=== PATIENT | female | born 1995 | race Caucasian/White ===

== ENCOUNTER 2020-06-26 14:06 | Day surgery (SDC) | payer OTHER ==
[2020-06-26 14:44] LABS: BASOPHILS % (AUTO) 0.6 %; EOSINOPHILS # (AUTO) 0.1 10^3/uL (0.0-0.7); EOSINOPHILS % (AUTO) 1.2 %; HGB - HEMOGLOBIN 12.8 g/dL (12.0-16.0); LYMPHOCYTES % (AUTO) 38.4 %; MEAN CORPUSCULAR HEMOGLOBIN 30.4 pg (27.0-31.0); MEAN CORPUSCULAR HGB CONC 31.8 g/dL (32.0-36.0); MEAN CORPUSCULAR VOLUME 95.7 fL (81.0-99.0); MEAN PLATELET VOLUME 11.4 fL (7.9-10.8); MONOCYTES # (AUTO) 0.4 10^3/uL (0.0-1.0); MONOCYTES % (AUTO) 7.8 %; NEUTROPHILS # (AUTO) 2.7 10^3/uL (1.5-6.6); NEUTROPHILS % (AUTO) 51.8 %; PLT - PLATELET COUNT 216 10^3/uL (130-450); RED BLOOD COUNT 4.21 10^6/uL (4.20-5.40); RED CELL DISTRIBUTION WIDTH 12.9 % (12.0-15.0); WHITE BLOOD COUNT 5.2 x10^3/uL (4.8-10.8)
[2020-06-26 14:59] LABS: ALBUMIN 4.2 g/dL (3.2-5.5); ALBUMIN/GLOBULIN RATIO 1.2 (1.0-2.2); BILIRUBIN,TOTAL 0.6 mg/dL (0.2-1.0); CALCIUM 9.2 mg/dL (8.5-10.3); CREATININE 0.6 mg/dL (0.4-1.0); TOTAL PROTEIN 7.6 g/dL (6.7-8.2)
[2020-06-26] MEDS ORDERED: SODIUM CHLORIDE 0.9% 1,000 ML IV STA (14:59)
--- NOTE | 2020-06-26 15:02 | ED Physician Documentation ---
History of Present Illness - Stated complaint Stated Complaint: FEMALE - Chief complaint Chief Complaint: Abd Pain - History obtained from History obtained from: Patient, Family - Additonal information Additional information: 25-year-old female comes to the emergency department with 2 days right lower quadrant pelvic pain. She is . Last menstrual period May 18, 2020. She began having persistent right lower quadrant pelvic pain 2 days ago and was seen at [facility] emergency department. She reports to me that she did have imaging done but they could not rule out ectopic and she was advised to follow- up in 2 days to trend her hCG levels. Since being seen at [facility] ER she reports that the pain is worsening. She does endorse vaginal spotting but no heavy menstrual flow. She has no fevers, dysuria, Patient denies any pertinent past medical history. Takes no prescribed medications. Denies tobacco or alcohol use. This is a desired . Review of Systems Constitutional: denies: Fever, Chills Nose: denies: Rhinorrhea / runny nose, Congestion Cardiac: denies: Chest pain / pressure, Palpitations Respiratory: denies: Dyspnea, Cough GI: reports: Abdominal Pain, Nausea. denies: Vomiting, Constipation, Diarrhea, Hematemesis : reports: LMP (05/18/20), Vaginal bleeding, Now EGA. denies: Dysuria, Frequency, Hesitancy Skin: denies: Rash, Lesions Neurologic: denies: Focal weakness, Numbness, Difficulty speaking, Near syncope, Syncope, Seizure, Headache, LOC PD PAST MEDICAL HISTORY - Allergies Allergies/Adverse Reactions: Allergies Allergy/AdvReac Type Severity Reaction Status Date / Time acetaminophen Allergy Unknown Verified 06/26/20 14:18 peanut Allergy Unknown Verified 06/26/20 14:18 PD ED PE NORMAL - General General: Alert and oriented X 3, No acute distress, Well developed/nourished - Neck Neck: No adenopathy - Cardiac Cardiac: RRR, No murmur, No gallop - Respiratory Respiratory: No respiratory distress, Clear bilaterally - Abdomen Abdomen: Normal bowel sounds, Soft, Other (Rebound tenderness RLQ) - Female Female : No: Deferred - Back Back: No: No CVA TTP - Derm Derm: No: Normal color, Warm and dry - Extremities Extremities: No: No deformity, No tenderness to palpate - Neuro Neuro: No: Alert and oriented X 3, rehabilitation worker 2-12 intact, No motor deficit, No sensory deficit Results - Vitals Vitals: Vital Signs - 24 hr 06/26/20 06/26/20 06/26/20 14:11 15:23 16:52 Temperature 37.1 C Heart Rate 74 74 72 Respiratory 20 16 16 Rate Blood Pressure 101/63 111/59 L 107/66 O2 Saturation 97 100 100 Oxygen O2 Source Room air - Labs Labs: Laboratory Tests 06/26/20 06/26/20 06/26/20 14:40 14:40 14:40 WBC 5.2 RBC 4.21 Hgb 12.8 Hct 40.3 MCV 95.7 MCH 30.4 MCHC 31.8 L RDW 12.9 Plt Count 216 MPV 11.4 H Neut # (Auto) 2.7 Lymph # (Auto) 2.0 [place] # (Auto) 0.4 Eos # (Auto) 0.1 Baso # (Auto) 0.0 Absolute Nucleated RBC 0.00 Nucleated RBC % 0.0 Sodium 138 Potassium 3.9 Chloride 102 Carbon Dioxide 25 Anion Gap 11.0 BUN 9 Creatinine 0.6 Estimated GFR (MDRD) 122 Glucose 92 Calcium 9.2 Total Bilirubin 0.6 AST 18 ALT 16 Alkaline Phosphatase 46 Total Protein 7.6 Albumin 4.2 Globulin 3.4 Albumin/Globulin Ratio 1.2 Lipase 38 HCG, Quant 1775.00 Urine Color Urine Clarity Urine pH Ur Specific [place] Urine Protein Urine Glucose (UA) Urine Ketones Urine Occult Blood Urine Nitrite Urine Bilirubin Urine Urobilinogen Ur Leukocyte Esterase Urine RBC Urine WBC Ur Squamous Epith Cells Urine Bacteria Ur Microscopic Review Urine Culture Comments 06/26/20 15:10 WBC RBC Hgb Hct MCV MCH MCHC RDW Plt Count MPV Neut # (Auto) Lymph # (Auto) [place] # (Auto) Eos # (Auto) Baso # (Auto) Absolute Nucleated RBC Nucleated RBC % Sodium Potassium Chloride Carbon Dioxide Anion Gap BUN Creatinine Estimated GFR (MDRD) Glucose Calcium Total Bilirubin AST ALT Alkaline Phosphatase Total Protein Albumin Globulin Albumin/Globulin Ratio Lipase HCG, Quant Urine Color YELLOW Urine Clarity CLEAR Urine pH 7.5 Ur Specific [place] 1.015 Urine Protein NEGATIVE Urine Glucose (UA) NEGATIVE Urine Ketones NEGATIVE Urine Occult Blood SMALL H Urine Nitrite NEGATIVE Urine Bilirubin NEGATIVE Urine Urobilinogen 0.2 (NORMAL) Ur Leukocyte Esterase NEGATIVE Urine RBC 0-5 Urine WBC 4-5 Ur Squamous Epith Cells RARE Squamous Urine Bacteria None Seen Ur Microscopic Review INDICATED Urine Culture Comments NOT INDICATED - Rads (name of study) Pelvic Ultrasound Radiology: Final report received (Findings highly suspicious for a right tubal/ovarian ectopic) PD MEDICAL DECISION MAKING - ED course ED course: 25-year-old female presents to the emergency department for evaluation of right lower abdominal/pelvic pain. She is and was seen at [facility] emergency department 2 days ago for similar. She reports to me that at the time they could not rule out an ectopic . She is not clear what her hCG value was at the time of the ED visit. Since then she is continued to have persistent pain and presents today for further evaluation. We have requested the emergency department records labs and imaging from [facility]. 1628: I have been notified by the chemical engineering technologist that the ultrasound is very concerning for a possible right tubal ectopic . I have asked for Dr. Soto to be paged for further consult and evaluation 1655: Dr. Soto is at bedside. He has indicated to this provider that he will be taking the patient to surgery to manage her ectopic . Departure - Departure Disposition: ED Transfer to [facility] Clinical Impression: Ectopic , tubal Qualifiers: Intrauterine status: unspecified Laterality: right Qualified Code(s): O00.101 - Right tubal without intrauterine
[2020-06-26] MEDS ORDERED: MORPHINE 2 MG/ML CARPUJECT IVP STA (15:15)
[2020-06-26 15:34] LABS: BILIRUBIN,URINE NEGATIVE (NEGATIVE); GLUCOSE, URINE (UA) NEGATIVE (NEGATIVE); KETONES,URINE (UA) NEGATIVE (NEGATIVE); LEUKOCYTE ESTERASE, URINE NEGATIVE (NEGATIVE); NITRITE,URINE NEGATIVE (NEGATIVE); OCCULT BLOOD,URINE SMALL (NEGATIVE); PH,URINE 7.5 PH (5.0-7.5); PROTEIN,URINE NEGATIVE (NEGATIVE); UROBILINOGEN,URINE 0.2 (NORMAL) E.U./dL (NORMAL)
[2020-06-26 15:46] LABS: BACTERIA,URINE None Seen /HPF (None Seen); CLARITY,URINE CLEAR (CLEAR); RBC,URINE 0-5 /HPF (0-5); SQUAMOUS EPITHELIAL CELL,UR RARE Squamous (<= Few)
--- NOTE | 2020-06-26 16:33 | Ultrasound Report ---
PROCEDURE: OB First Trimester INDICATIONS: Right lower quadrant abdominal pain, suspicion for ectopic TECHNIQUE: Real-time scanning was performed of the fetus and maternal pelvic organs, with image documentation. COMPARISON: 06/24/2020 FINDINGS: These images demonstrate a constellation of findings highly suspicious for right ovarian ectopic preg jonathon or tubal ectopic . Specifically, at the medial aspect of the right ovary near the junc tion of the ovary and fallopian tube, there is an approximately 3.2 cm focus of increased echogenicit y with peripheral circular vascularity (so-called ring of fire sign). There is extensive free fluid i n the right hemipelvis adjacent to the right ovary and right uterus which has multiple low-level inte rnal echoes suggestive of hemorrhagic or proteinaceous debris in the fluid. There is no evidence of intrauterine . The left ovary is unremarkable. IMPRESSION: Findings highly suspicious for right ovarian/tubal ectopic. Gynecology consult recommended. Reviewed by: Russell Redman MD on 06/26/2020 4:32 PM PDT Approved by: Russell Redman MD on 06/26/2020 4:32 PM PDT Station ID: [id number]
[2020-06-26] MEDS ORDERED: BUPIVACAINE 0.25% PF 30 ML VIAL ONE (17:19)
--- NOTE | 2020-06-26 17:44 | PREOP HISTORY & PHYSICAL ---
DATE OF SERVICE: 06/26/2020 Physician: Mo Soto MD IDENTIFICATION: The patient is a 25-year-old G1, P0 female whose last menstrual period was 05/18/2020. This makes her 5.4 weeks. CHIEF COMPLAINT: Right lower quadrant pain. HISTORY OF PRESENT ILLNESS: The patient states that she has developed some right lower abdominal discomfort and cramping. She states that it became progressively worse and was seen at the hospital in [place] on 06/24/2020, at which time she had an ultrasound and hCG, was told it was probably too early at that point. She was told to get a repeat quantitative hCG. Today, she states her pain has become progressively worse and is now severe on the right lower quadrant. She was seen initially here at 1400. She has had an ultrasound, as well as quantitative hCG. The quantitative hCG of 1770. The ultrasound was compatible with a right ectopic , with evidence of blood in the abdominal cavity. The patient was questioning whether it would be too late to utilize methotrexate, but since she is having significant pain, as well as what appears to be bleeding I do not believe this is the case. She denies use of an IUD in the past, but has had a chlamydial infection. She denies a history of an appendicitis. PAST MEDICAL HISTORY: Positive for migraine. PAST SURGICAL HISTORY: None. ALLERGIES: ACETAMINOPHEN. CURRENT MEDICATIONS: None. HABITS: The patient drinks alcohol, maybe on a monthly basis. Denies used tobacco, street or addictive drugs. 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 FAMILY HISTORY: Positive for grandmother with hypertension. REVIEW OF SYSTEMS: Negative with the exception of glasses and possible irritable bowel syndrome. PHYSICAL EXAMINATION VITAL SIGNS: Temperature 37.1, heart rate 72, blood pressure 107/66, saturating 100% on room air. HEENT: Pupils equal, round. Extraocular muscles are intact. Thyroid is not palpably enlarged. HEART: Regular rate and rhythm without murmurs. LUNGS: Lung gautam are clear without rales or wheezes. BACK: No spinal or CVA tenderness noted. ABDOMEN: Shows tenderness in the right lower quadrant with evidence of rebound. The remainder of the abdomen is tender with the exception of some mild tenderness in the left lower quadrant. There is no CVA tenderness noted. PELVIC: Deferred in that she has signs and symptoms which are strongly compatible for an ectopic . IMPRESSION: A 25-year-old G1, P0, with right-sided ectopic with apparent hemoperitoneum. PLAN: We will perform diagnostic laparoscopy with excision of the right fallopian tube. Risks and benefits have been explained to the patient, including those, but not limited to bleeding, infection, injury to pelvic organs, which include the uterus, tubes, ovaries, bowel, bladder and ureters. She is aware of the potential for DVT, as well as postoperative adhesions which could cause pain, bowel obstruction, infertility. TD: 06/26/2020 17:25 ROXANA
[2020-06-26] MEDS ORDERED: BUPIVACAINE 0.25%-EPI 1:200000 PF 30 ML VIAL ONE (17:51)
--- NOTE | 2020-06-26 17:51 | ANESTHESIA ---
Pre-Anesthesia VS, & Labs - Diagnosis right ectopic - Procedure diagnostic laparscopy, right salpingectomy, left chromopertubation Vital Signs: Temp Pulse Resp BP Pulse Ox 37.3 C 91 16 127/76 100 06/26/20 17:41 06/26/20 17:41 06/26/20 17:41 06/26/20 17:41 06/26/20 17:41 Height 5 ft 9 in Weight (kg) 72.575 kg Body Mass Index 23.6 - NPO Other (NPO since noon) - Is Patient ?: Yes - Lab Results Current Lab Results: Laboratory Tests 06/26/20 16:35: Blood Type AB POSITIVE 06/26/20 14:40: HCG, Quant 1775.00 06/26/20 14:40: Sodium 138, Potassium 3.9, Chloride 102, Carbon Dioxide 25, Anion Gap 11.0, BUN 9, Creatinine 0.6, Estimated GFR (MDRD) 122, Glucose 92, Calcium 9.2, Total Bilirubin 0.6, AST 18, ALT 16, Alkaline Phosphatase 46, Total Protein 7.6, Albumin 4.2, Globulin 3.4, Albumin/Globulin Ratio 1.2, Lipase 38 06/26/20 14:40: WBC 5.2, RBC 4.21, Hgb 12.8, Hct 40.3, MCV 95.7, MCH 30.4, MCHC 31.8 L, RDW 12.9, Plt Count 216, MPV 11.4 H, Neut # (Auto) 2.7, Lymph # (Auto) 2.0, [place] # (Auto) 0.4, Eos # (Auto) 0.1, Baso # (Auto) 0.0, Absolute Nucleated RBC 0.00, Nucleated RBC % 0.0 Fish Bones: 06/26/20 14:40 06/26/20 14:40 Home Medications and Allergies Allergies/Adverse Reactions: Allergies Allergy/AdvReac Type Severity Reaction Status Date / Time acetaminophen Allergy Unknown Verified 06/26/20 14:18 peanut Allergy Unknown Verified 06/26/20 14:18 Anes History & Medical History - Anesthetic History Family history of Anesthesia Complications: Denies Family history of Malignant Hyperthermia: Denies - Medical History Cardiovascular: reports: None Pulmonary: reports: None Gastrointestinal: reports: None Urinary: reports: None Neuro: reports: None Musculoskeletal: reports: None Endocrine/Autoimmune: reports: None Blood Disorders: reports: None Skin: reports: None Smoking Status: Never smoker Psychosocial: reports: No issues indicated Exam General: Alert, Oriented x3, Cooperative, No acute distress Dental: WNL Mouth Openin Fingerbreadth Neck Mobility: Normal Mallampati classification: II Thyromental Distance: 4-6 cm Respiratory: Lungs clear, Normal breath sounds, No respiratory distress, No accessory muscle use Cardiovascular: Regular rate, Normal S1, Normal S2, No murmurs Mental/Cognitive Status: Alert/Oriented X3, Normal for patient Plan Anesthesia Type: General (RSI) Consent for Procedure(s) Verified and Reviewed: Yes Code Status: Attempt Resuscitation ASA classification: 1-Healthy patient Is this case an emergency?: Yes
[2020-06-26] MEDS ORDERED: METHYLENE BLUE 0.5% 50 MG/10 ML AMPULE ONE (17:57)
[2020-06-26] MEDS ORDERED: ONDANSETRON 4 MG/2 ML VIAL IVP ONE (18:06)
[2020-06-26] MEDS ORDERED: SUCCINYLCHOLINE 200 MG/10 ML VIAL IVP ONE (18:06)
[2020-06-26] MEDS ORDERED: PROPOFOL 200 MG/20 ML VIAL IVP ONE (18:06)
[2020-06-26] MEDS ORDERED: MIDAZOLAM 2 MG/2 ML VIAL IVP ONE (18:06)
[2020-06-26] MEDS ORDERED: ROCURONIUM 50 MG/5 ML VIAL IVP ONE (18:06)
[2020-06-26] MEDS ORDERED: KETOROLAC 30 MG/ML VIAL IVP ONE (18:06)
[2020-06-26] MEDS ORDERED: DEXAMETHASONE 4 MG/ML VIAL IVP ONE (18:06)
[2020-06-26] MEDS ORDERED: GLYCOPYRROLATE 1 MG/5 ML VIAL IVP ONE (18:06)
[2020-06-26] MEDS ORDERED: fentaNYL 100 MCG/2 ML VIAL IVP ONE (18:06)
[2020-06-26] MEDS ORDERED: NEOSTIGMINE 1 MG/1 ML 10 ML MDV IVP ONE (18:06)
[2020-06-26] MEDS ORDERED: CEFAZOLIN SODIUM IN 0.9 % NACL 2 GM/100 ML BAG IV ONE (18:30)
[2020-06-26] MEDS ORDERED: BUPIVACAINE 0.25%-EPI 1:200000 PF 30 ML VIAL SUBQ ONE ×2 (18:42)
[2020-06-26] MEDS ORDERED: METHYLENE BLUE 0.5% 50 MG/10 ML AMPULE IR ONE ×2 (18:42)
[2020-06-26] MEDS ORDERED: LORazepam 2 MG/ML VIAL IVP PRN (19:44)
[2020-06-26] MEDS ORDERED: ONDANSETRON 4 MG/2 ML VIAL IVP PRN ×2 (19:44→19:46)
[2020-06-26] MEDS ORDERED: LACTATED RINGERS 1,000 ML IV ONE (19:45)
[2020-06-26] MEDS ORDERED: MORPHINE 2 MG/ML CARPUJECT IVP PRN (19:46)
[2020-06-26] MEDS ORDERED: HYDROmorphone 0.5 MG/0.5 ML SYRINGE IVP PRN (19:46)
[2020-06-26] MEDS ORDERED: fentaNYL 100 MCG/2 ML VIAL IVP PRN (19:46)
[2020-06-26] MEDS ORDERED: ATROPINE ABBOJECT 1 MG/10 ML SYRINGE IVP PRN (19:46)
[2020-06-26] MEDS ORDERED: NALOXONE 0.4 MG/ML VIAL IVP PRN (19:46)
--- NOTE | 2020-06-26 19:49 | OPERATIVE REPORT ---
Operative Report - General Procedure Date: 06/26/20 Planned Procedure: Laproscopic right salpingectomy, chromopertubation Pre-Op Diagnosis: rigth ectopic Procedure Performed: Rigth laproscopic salpingectomy, Chromopertubation Post Op Diagnosis: Same - Procedure Note Primary Surgeon: Mo Soto MD Anesthesia Provider: Kentrell Dey CRNA Anesthesia Technique: General ET tube IV Fluids (mL): 1,000 Estimated Blood Loss (mL): 5 Urine Output (mL): 50
[2020-06-26] MEDS: HYDROmorphone 1 MG/ML CARPUJECT ONE ×2 (19:53→19:58)
[2020-06-26] MEDS ORDERED: LACTATED RINGERS 1,000 ML IV SCH (20:00)
[2020-06-26] MEDS ORDERED: fentaNYL 100 MCG/2 ML VIAL ONE (20:10)
--- NOTE | 2020-06-26 20:10 | ANESTHESIA POST OP EVALUATION ---
Anesthesia Post Eval - Post Anesthesia Eval Vitals: Last Vital Signs Temp 36.3 C L 06/26/20 19:58 Pulse 90 06/26/20 19:58 Resp 24 06/26/20 19:58 BP 106/71 06/26/20 19:58 Pulse Ox 100 06/26/20 19:58 CV Function Including HR & BP: positive: Stable Pain Control: positive: Additional Therapies Ordered Nausea & Vomiting: positive: Negative Mental Status: positive: Baseline Respiratory Status: Airway Patent Hydration Status: Satisfactory Anesthesia Complications: positive: None
[2020-06-26] MEDS: LACTATED RINGERS 1,000 ML IV SCH (22:13)
[2020-06-27] MEDS ORDERED: SODIUM CHLORIDE 0.9% 500 ML IV ONE (02:31)
--- NOTE | 2020-06-27 03:11 | OPERATIVE REPORT ---
DATE OF SERVICE: 06/26/2020 Physician: Mo Soto MD PREOPERATIVE DIAGNOSIS: Right ectopic . POSTOPERATIVE DIAGNOSES 1. Right ectopic with hemoperitoneum. 2. Patent left fallopian tube. PROCEDURE PERFORMED: Diagnostic laparoscopy with right salpingectomy and chromopertubation. SURGEON: Mo Soto MD ANESTHESIA PROVIDER: Jo Humphrey CRNA ANESTHETIC: General via endotracheal tube. ESTIMATED BLOOD LOSS: 5 mL INTRAVENOUS FLUIDS: 1000 mL URINE OUTPUT: 50 mL FINDINGS: Upon entering the abdominal cavity, there was blood noted throughout the entire pelvis. T here was pooling in the cul-de-sac, as well as over the bladder. There was an ectopic in t he fimbriated area of the right fallopian tube with blood dripping from the fimbria. Upon performing of chromopertubation, there was evidence of a patent left fallopian tube with methylene blue dye com ing out the fimbriated end. DESCRIPTION OF PROCEDURE: Following adequate endotracheal anesthesia, patient was placed in dorsal l ithotomy position in Jose stirru. At this point, a pelvic examination was performed in which the uterus was felt to be retroverted. She was then prepped and draped in the usual fashion. Timeout wa s performed, following which, a speculum was placed in the vagina. The cervix was visualized, graspe d with a single-tooth tenaculum and then it was dilated up to 8 mm. Uterus was sounded, retroverted, 8 mm in depth. A HUMI catheter was placed in the retroverted orientation. Following this, an IV ex tension was placed. At this point, the carbon furnace operator's gloves were changed and, following local anesthesi a with 0.25% Marcaine, a subumbilical port was placed. There was some difficulty with depth so that a 15 cm trocar was placed on the first pass. Two additional 5 mm ports were placed, both in the left and right lower quadrants. The pelvis was inspected and there was evidence of hemoperitoneum, both in the cul-de-sac surrounding the right adnexa, as well as the anterior bladder. These were suctione d clear utilizing the radio machinist aspirator. A LigaSure was then used to cauterize and transect the me sosalpinx on the right fallopian tube. This was carried all the way to the cornu and then this was t ransected. This was attempted to be brought through the right lower quadrant 5 mm port; however, thi s was unsuccessful due to its diameter, so a 10 mm trocar was placed under direct visualization. The was then brought through this port without difficulty. At this point, the mesosalpinx on the right-hand side was inspected and noted to have a small amount of bleeding. This was treated wit h electrocautery. The pelvis was inspected and the left fallopian tube had methylene blue dilute shoaib ution put through the tube on this side. There was evidence of patency. The pelvis was then irrigat ed clear and there was no evidence of any further bleeding. The right lower quadrant port was remove d and then this was closed with a single suture of 0 Vicryl with a Agus-Brad. The midline and left lower quadrant ports were removed, and then all 3 were closed with 4-0 Monocryl subcuticular. A t this point, the instruments were removed from the vagina and cervix. Patient tolerated the procedu re well and was taken to Recovery in stable condition. Sponge and needle counts were correct. TD: 06/26/2020 19:59
[2020-06-27] MEDS ORDERED: SODIUM CHLORIDE 0.9% 250 ML IV ONE (05:04)
[2020-06-27] MEDS: KETOROLAC 30 MG/ML VIAL IVP PRN ×2 (05:24→11:18)
[2020-06-27 05:49] LABS: HGB - HEMOGLOBIN 10.5 g/dL (12.0-16.0); LYMPHOCYTES # (AUTO) 0.7 10^3/uL (1.5-3.5); LYMPHOCYTES % (AUTO) 10.8 %; MEAN CORPUSCULAR HEMOGLOBIN 30.5 pg (27.0-31.0); MEAN CORPUSCULAR HGB CONC 33.3 g/dL (32.0-36.0); MEAN CORPUSCULAR VOLUME 91.6 fL (81.0-99.0); MEAN PLATELET VOLUME 11.4 fL (7.9-10.8); MONOCYTES # (AUTO) 0.2 10^3/uL (0.0-1.0); MONOCYTES % (AUTO) 3.7 %; NEUTROPHILS # (AUTO) 5.4 10^3/uL (1.5-6.6); NEUTROPHILS % (AUTO) 85.2 %; PLT - PLATELET COUNT 193 10^3/uL (130-450); RED BLOOD COUNT 3.44 10^6/uL (4.20-5.40); RED CELL DISTRIBUTION WIDTH 12.9 % (12.0-15.0); WHITE BLOOD COUNT 6.3 x10^3/uL (4.8-10.8)
[2020-06-27] MEDS: LACTATED RINGERS 1,000 ML IV SCH (08:51)
[2020-06-27] MEDS: HYDROmorphone 0.5 MG/0.5 ML SYRINGE IVP PRN ×2 (10:05→13:55)
[2020-06-27 13:08] VITALS: BP 90/51
== END 2020-06-27 14:44 | disposition home or self-care (01) ==
LOC: ED 14:06 → SDS 17:14 → MS2 20:35 → SDS 06-27 14:44
PROVIDERS: ATTEND Obstetrics & Gynecology
PROC: 0UT54ZZ Resection of Right Fallopian Tube, Percutaneous Endoscopic Approach (ICD-10-PCS; 2020-06-26)
PROC: 10T24ZZ Resection of Products of Conception, Ectopic, Percutaneous Endoscopic Approach (ICD-10-PCS; principal; 2020-06-26 17:20)
DX: O00.101 Right tubal pregnancy without intrauterine pregnancy (principal); Z86.19 Personal history of other infectious and parasitic diseases
CPT/HCPCS: 36415; 59151; 76801; 76817; 80053; 81001; 83690; 84702; 85025; 86900; 86901; 96361; 96374; 99284; 99285; J0330; J0690; J1170; J2060; J7120; 81003; 87086

== ENCOUNTER 2020-07-03 14:27 | Outpatient (CLI) | payer OTHER | END 2020-07-03 14:28 | disposition critical access hospital (66) | LOC: EMS 14:27 | PROVIDERS: ATTEND Surgery | DX: R55 Syncope and collapse (principal); R10.31 Right lower quadrant pain | CPT/HCPCS: A0425; A0427 ==

== ENCOUNTER 2020-07-03 14:44 | Emergency (ER) | payer OTHER ==
[2020-07-03] MEDS ORDERED: SODIUM CHLORIDE 0.9% 1,000 ML IV STA ×2 (15:32→16:25)
--- NOTE | 2020-07-03 15:54 | ED Physician Documentation ---
PD HPI SYNCOPE - Stated complaint Stated Complaint: LOC - Chief complaint Chief Complaint: Neuro - History obtained from History obtained from: Patient, Family - History of Present Illness Witnessed: Witnessed Timing - onset: Today Duration: Minutes Preceding symptoms: Vision changes, Diaphoresis, Light headed, Generalized weak ness Associated symptoms: Vision changes, Nausea / vomiting Contributing factors: Decreased PO intake, Other Injury occurred: None Treatment RESAWYER: Fluids Similar symptoms before: Has not had sx before Recently seen: Surgery - Additional information Additional information: 25-year-old female has had a recent surgery for ectopic was in the shower today with her when she had 3 syncopal episodes. She was assisted down to the ground she did not have any injury associated with this and she is brought to the hospital by ambulance. Review of Systems Constitutional: reports: Fatigue. denies: Fever Eyes: denies: Decreased vision Ears: denies: Ear pain Nose: denies: Congestion Throat: denies: Sore throat Cardiac: denies: Chest pain / pressure, Palpitations Respiratory: denies: Dyspnea, Cough GI: reports: Abdominal Pain : denies: Dysuria, Frequency Skin: denies: Rash Musculoskeletal: denies: Neck pain, Back pain, Extremity pain Neurologic: reports: Syncope, Headache. 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 : None Musculoskeletal: None Derm: None - Past Surgical History Past Surgical History: No /COMMERCIAL FRONT LOAD DRIVER: Other - Allergies Allergies/Adverse Reactions: Allergies Allergy/AdvReac Type Severity Reaction Status Date / Time acetaminophen Allergy Unknown Verified 06/26/20 14:18 peanut Allergy Unknown Verified 06/26/20 14:18 - Social History Does the pt smoke?: No Smoking Status: Never smoker Does the pt have substance abuse?: No PD ED PE NORMAL - Vitals Vital signs reviewed: Yes (normal ) - General General: Alert and oriented X 3, No acute distress, Well developed/nourished - HEENT HEENT: Atraumatic, PERRL, EOMI - Neck Neck: Supple, no meningeal sign - Cardiac Cardiac: RRR, No murmur - Respiratory Respiratory: No respiratory distress, Clear bilaterally - Abdomen Abdomen: Soft, Other (R lower quadrant tenderness without garding. ) - Back Back: No CVA TTP, No spinal TTP - Derm Derm: Normal color, Warm and dry, No rash - Extremities Extremities: No deformity, No edema - Neuro Neuro: Alert and oriented X 3, account receivable associate 2-12 intact, No motor deficit, No sensory deficit, Normal speech Eye Opening: Spontaneous Motor: Obeys Commands Verbal: Oriented GCS Score: 15 - Psych Psych: Normal mood, Normal affect Results - Vitals Vitals: Vital Signs - 24 hr 07/03/20 07/03/20 07/03/20 14:52 15:29 15:30 Temperature 37.0 C Heart Rate 93 54 L 60 Respiratory 18 14 16 Rate Blood Pressure 115/74 108/67 117/73 O2 Saturation 100 100 99 07/03/20 07/03/20 07/03/20 16:00 16:30 17:00 Temperature 37.3 C Heart Rate 57 L 62 71 Respiratory 14 16 14 Rate Blood Pressure 104/57 L 98/62 105/61 O2 Saturation 99 100 100 07/03/20 17:30 Temperature Heart Rate 74 Respiratory 16 Rate Blood Pressure 104/64 O2 Saturation 100 Oxygen O2 Source Room air - EKG (time done) 1451 Rate: Rate (enter#) (71) Rhythm: NSR Ischemia: Normal ST segments Compare to prior EKG: Old EKG unavailable Computer interpretation: Agree with computer - Labs Labs: Laboratory Tests 07/03/20 07/03/20 07/03/20 15:41 15:41 16:15 WBC 6.4 RBC 3.86 L Hgb 12.2 Hct 34.8 L MCV 90.2 MCH 31.6 H MCHC 35.1 RDW 12.6 Plt Count 246 MPV 10.7 Neut # (Auto) 4.8 Lymph # (Auto) 1.1 L [place] # (Auto) 0.5 Eos # (Auto) 0.1 Baso # (Auto) 0.0 Absolute Nucleated RBC 0.00 Nucleated RBC % 0.0 Sodium 138 Potassium 3.8 Chloride 105 Carbon Dioxide 25 Anion Gap 8.0 BUN 11 Creatinine 0.7 Estimated GFR (MDRD) 102 Glucose 95 Calcium 8.9 Total Bilirubin 0.7 AST 16 ALT 15 Alkaline Phosphatase 41 L Total Protein 7.1 Albumin 3.8 Globulin 3.3 Albumin/Globulin Ratio 1.2 Lipase 37 Urine Color RED/BLOODY Urine Clarity CLOUDY Urine pH 8.0 H Ur Specific [place] 1.020 Urine Protein 30 H Urine Glucose (UA) NEGATIVE Urine Ketones TRACE Urine Occult Blood LARGE H Urine Nitrite NEGATIVE Urine Bilirubin NEGATIVE Urine Urobilinogen 1 (NORMAL) Ur Leukocyte Esterase TRACE H Urine RBC TNTC H Urine WBC 4-5 Ur Squamous Epith Cells RARE Squamous Urine Bacteria Few Ur Microscopic Review INDICATED Urine Culture Comments INDICATED Procedures - FAST exam (time) 1520 FAST exam: No: Free fluid RUQ, Free fluid LUQ, Free fluid suprapubic - IVC sono (time) 1518 Bedside IVC sono: IVC measures (cm) (0.93), IVC collapsed c insp (cm) (complete), Dehydration (est 2 liter deficit) PD MEDICAL DECISION MAKING - ED course Complexity details: reviewed old records, reviewed results, re-evaluated patient, considered differential, d/w patient, d/w family ED course: 25-year-old female with a recent history of ectopic status post right tubal removal had minimal bleeding from the procedure and lost maybe 150 mls of blood. Today she has had a syncopal episode after being in the shower and here in the emergency department she is found to be dehydrated on interrogation the i nferior vena cava indicating about a 2 L deficit. A FAST exam does not demonstrate any evidence of free fluid in the pelvis or either gutter. The patient's blood counts are stable. She is administered 2 L of saline with improvement. She continues to have some right lower quadrant pain that she has had prior to and after her operation. Dr. Soto is consulted in the case by telephone and will follow up with the patient in clinic this coming week. Departure - Departure Disposition: 01 Home, Self Care Clinical Impression: Dehydration Syncope Qualifiers: Syncope type: heat syncope Encounter type: initial encounter Qualified Code(s): T67.1XXA - Heat syncope, initial encounter Condition: Stable Instructions: ED Dehydration, ED Syncope Vasovagal Follow-Up: CALEB BERNSTEIN ARNP [Primary Care Provider] - Mo Soto MD [Provider Admit Priv/Credential] - Comments: Today you were significantly dehydrated and our recommendation is that you drink at least 2 quarts of water daily. Follow-up with Dr. Gilmore in the coming week as planned.
[2020-07-03 15:58] LABS: BASOPHILS % (AUTO) 0.3 %; EOSINOPHILS # (AUTO) 0.1 10^3/uL (0.0-0.7); EOSINOPHILS % (AUTO) 0.9 %; HGB - HEMOGLOBIN 12.2 g/dL (12.0-16.0); LYMPHOCYTES # (AUTO) 1.1 10^3/uL (1.5-3.5); LYMPHOCYTES % (AUTO) 16.8 %; MEAN CORPUSCULAR HEMOGLOBIN 31.6 pg (27.0-31.0); MEAN CORPUSCULAR HGB CONC 35.1 g/dL (32.0-36.0); MEAN CORPUSCULAR VOLUME 90.2 fL (81.0-99.0); MEAN PLATELET VOLUME 10.7 fL (7.9-10.8); MONOCYTES # (AUTO) 0.5 10^3/uL (0.0-1.0); MONOCYTES % (AUTO) 7.5 %; NEUTROPHILS # (AUTO) 4.8 10^3/uL (1.5-6.6); NEUTROPHILS % (AUTO) 74.3 %; PLT - PLATELET COUNT 246 10^3/uL (130-450); RED BLOOD COUNT 3.86 10^6/uL (4.20-5.40); RED CELL DISTRIBUTION WIDTH 12.6 % (12.0-15.0); WHITE BLOOD COUNT 6.4 x10^3/uL (4.8-10.8)
[2020-07-03 16:03] LABS: ALBUMIN 3.8 g/dL (3.2-5.5); ALBUMIN/GLOBULIN RATIO 1.2 (1.0-2.2); BILIRUBIN,TOTAL 0.7 mg/dL (0.2-1.0); CALCIUM 8.9 mg/dL (8.5-10.3); CREATININE 0.7 mg/dL (0.4-1.0); TOTAL PROTEIN 7.1 g/dL (6.7-8.2)
[2020-07-03 16:27] LABS: BILIRUBIN,URINE NEGATIVE (NEGATIVE); GLUCOSE, URINE (UA) NEGATIVE (NEGATIVE); KETONES,URINE (UA) TRACE mg/dL (NEGATIVE); LEUKOCYTE ESTERASE, URINE TRACE (NEGATIVE); NITRITE,URINE NEGATIVE (NEGATIVE); OCCULT BLOOD,URINE LARGE (NEGATIVE); PROTEIN,URINE 30 mg/dL (NEGATIVE); UROBILINOGEN,URINE 1 (NORMAL) E.U./dL (NORMAL)
[2020-07-03 16:38] LABS: CLARITY,URINE CLOUDY (CLEAR)
[2020-07-03 16:39] LABS: BACTERIA,URINE Few /HPF (None Seen); RBC,URINE TNTC /HPF (0-5); SQUAMOUS EPITHELIAL CELL,UR RARE Squamous (<= Few)
[2020-07-03 18:15] VITALS: BP 110/83
== END 2020-07-03 18:18 | disposition home or self-care (01) ==
LOC: EDUNIT# → ED 14:44
DX: E86.0 Dehydration (principal); R55 Syncope and collapse; R10.31 Right lower quadrant pain
CPT/HCPCS: 36415; 80053; 81001; 81003; 83690; 85025; 87077; 87086; 87181; 93005; 96360; 96361; 99284

== ENCOUNTER 2020-07-09 14:25 | Outpatient (CLI) | payer OTHER | END 2020-07-09 23:59 | disposition home or self-care (01) | LOC: LAB.WCP 14:25 | PROVIDERS: ATTEND Obstetrics & Gynecology | DX: Z87.59 Personal history of other complications of pregnancy, childbirth and the puerperium (principal) | CPT/HCPCS: 36415; 84702 ==

== ENCOUNTER 2020-07-10 07:00 | Outpatient (CLI) | payer OTHER | END 2020-07-10 23:59 | disposition home or self-care (01) | LOC: LAB.R 07:00 | PROVIDERS: ATTEND Obstetrics & Gynecology | DX: R30.0 Dysuria (principal) | CPT/HCPCS: 87086 ==

== ENCOUNTER 2020-07-17 08:00 | Outpatient (CLI) | payer OTHER | END 2020-07-17 08:01 | disposition home or self-care (01) | LOC: LAB.WCP 08:00 | PROVIDERS: ATTEND Obstetrics & Gynecology | DX: R30.0 Dysuria (principal); Z87.59 Personal history of other complications of pregnancy, childbirth and the puerperium | CPT/HCPCS: 36415; 84702; 87086 ==

== ENCOUNTER 2020-07-28 13:37 | Outpatient (CLI) | payer OTHER | END 2020-07-28 13:38 | disposition home or self-care (01) | LOC: LAB 13:37 | PROVIDERS: ATTEND Obstetrics & Gynecology | DX: Z87.59 Personal history of other complications of pregnancy, childbirth and the puerperium (principal) | CPT/HCPCS: 36415; 84702 ==

== ENCOUNTER 2020-07-28 16:59 | Outpatient (CLI) | payer OTHER ==
--- NOTE | 2020-07-29 03:38 | Ultrasound Report ---
PROCEDURE: OB Transvaginal INDICATIONS: H/O ECTOPIC, POS PREG TECHNIQUE: Transvaginal ultrasound examination of pelvis was performed. COMPARISON: 06/26/2020. FINDINGS: Patient is status post interval surgical removal of previously noted ectopic gestational sac. Uterus and endometrium appears within normal limits. No evidence of intrauterine gestation. No endometrial m ass or fluid. Right ovary measures 3.7 x 2.2 x 2.2 cm in size. Left ovary measures 2.2 x 1.2 x 3.1 cm in size. Comp ared to previous study, there is small amount of echogenic tissue seen medial to the right ovary and show increased vascularity on color Doppler images. No similar finding is seen in left adnexa. Limited images through the kidneys demonstrate no hydronephrosis. IMPRESSION: 1. Small amount of echogenic tissue adjacent to right ovary with increased vascularity. Given patient 's history of ectopic and elevated beta hCG level. Finding is concerning for residual ectop ic tissue in right adnexa. 2. No evidence of intrauterine . Normal-appearing uterus and endometrium. Reviewed by: Vinod Rothman MD on 07/28/2020 6:55 PM PDT Approved by: Vinod Rothman MD on 07/28/2020 6:55 PM PDT Station ID: [id number]
--- NOTE | 2020-07-29 03:38 | Ultrasound Report ---
PROCEDURE: OB First Trimester INDICATIONS: H/O ECTOPIC, POS PREG OUTSIDE/PRIOR DATING DATA: Last menstrual period (LMP): Unknown. LMP-based estimated date of delivery (ALVARO): Unknown. First dating scan (date and location): Unknown. Estimated date of delivery (ALVARO) from first dating scan: Unknown. TECHNIQUE: Real-time scanning was performed of the fetus and maternal pelvic organs, with image documentation. COMPARISON: 06/26/2020 FINDINGS: Patient is status post interval surgical removal of previously noted ectopic gestational sac. Uterus and endometrium appears within normal limits. No evidence of intrauterine gestation. No endometrial m ass or fluid. Right ovary measures 3.7 x 2.2 x 2.2 cm in size. Left ovary measures 2.2 x 1.2 x 3.1 cm in size. Comp ared to previous study, there is small amount of echogenic tissue seen medial to the right ovary and show increased vascularity on color Doppler images. No similar finding is seen in left adnexa. Limited images through the kidneys demonstrate no hydronephrosis. IMPRESSION: 1. Small amount of echogenic tissue adjacent to right ovary with increased vascularity. Given patient 's history of ectopic and elevated beta hCG level. Finding is concerning for residual ectop ic tissue in right adnexa. 2. No evidence of intrauterine . Normal-appearing uterus and endometrium. Reviewed by: Vinod Rothman MD on 07/28/2020 6:55 PM PDT Approved by: Vinod Rothman MD on 07/28/2020 6:55 PM PDT Station ID: [id number]
== END 2020-07-28 17:00 | disposition home or self-care (01) ==
LOC: DI 16:59
PROVIDERS: ATTEND Obstetrics & Gynecology
DX: R93.89 Abnormal findings on diagnostic imaging of other specified body structures (principal); Z87.59 Personal history of other complications of pregnancy, childbirth and the puerperium
CPT/HCPCS: 76801; 76817

== ENCOUNTER 2020-07-28 19:08 | Emergency (ER) | payer OTHER ==
--- NOTE | 2020-07-28 19:20 | ED Physician Documentation ---
PD HPI FEMALE - Stated complaint Stated Complaint: PELVIC PAIN - Chief complaint Chief Complaint: Abd Pain - History obtained from History obtained from: Patient - History of Present Illness Timing - onset: How many months ago (1) Timing - details: Gradual onset Pain level max: 5 Associated symptoms: Pelvic pain. 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 Unfortunately, her HCG levels have not followed appropriate trend and US performed today indicates retained tissue and thus linemarker recommended patient come to ED for blood tests and methotrexate Review of Systems Constitutional: denies: Fever GI: denies: Abdominal Pain (right pelvic pain), Abdominal Swelling, Nausea, Vomiting : denies: Dysuria, Frequency, Discharge PD PAST MEDICAL HISTORY - Past Medical History Cardiovascular: None Respiratory: None Neuro: None Endocrine/Autoimmune: None GI: None LIVE STUDY MANAGER: Ectopic : None Musculoskeletal: None Derm: None - Past Surgical History Past Surgical History: No /LIVE STUDY MANAGER: Other - Allergies Allergies/Adverse Reactions: Allergies Allergy/AdvReac Type Severity Reaction Status Date / Time acetaminophen Allergy Unknown Verified 07/28/20 19:11 peanut Allergy Unknown Verified 07/28/20 19:11 - Social History Does the pt smoke?: No Smoking Status: Never smoker Does the pt have substance abuse?: No PD ED PE NORMAL - Vitals Vital signs reviewed: Yes - General General: Alert and oriented X 3, No acute distress, Well developed/nourished - Abdomen Abdomen: Soft, Non tender, Non distended, Other (laparoscopic sites (trochar sites) are c/d/i without erythema, discharge, or tenderness. there is mild TTP right anterior hemipelvis which patient says has been present since the procedure) Results - Vitals Vitals: Vital Signs - 24 hr 07/28/20 07/28/20 07/28/20 19:12 19:20 20:50 Temperature 36.6 C 36.6 C 36.9 C Heart Rate 66 66 60 Respiratory 16 16 18 Rate Blood Pressure 114/70 114/70 99/62 O2 Saturation 100 100 100 Oxygen O2 Source Room air - Labs Labs: Laboratory Tests 07/28/20 07/28/20 19:38 19:38 WBC 5.2 RBC 3.90 L Hgb 12.3 Hct 35.9 L MCV 92.1 MCH 31.5 H MCHC 34.3 RDW 12.8 Plt Count 297 MPV 9.9 Neut # (Auto) 2.3 Lymph # (Auto) 2.4 [place] # (Auto) 0.5 Eos # (Auto) 0.1 Baso # (Auto) 0.0 Absolute Nucleated RBC 0.00 Nucleated RBC % 0.0 Sodium 138 Potassium 3.7 Chloride 100 L Carbon Dioxide 29 Anion Gap 9.0 BUN 9 Creatinine 0.6 Estimated GFR (MDRD) 122 Glucose 84 Calcium 9.3 Total Bilirubin 0.5 AST 35 ALT 43 Alkaline Phosphatase 51 Total Protein 7.7 Albumin 4.0 Globulin 3.7 Albumin/Globulin Ratio 1.1 Lipase 39 PD MEDICAL DECISION MAKING - ED course Complexity details: reviewed old records, reviewed results, re-evaluated patient, considered differential, d/w patient ED course: D/W Dr. Mata, recommends blood tests (CBC, CMP (looking at LFTs and renal function, and thus ED abd. panel will cover these)), and then methotrexate IM 50mg x BSA. Blood tests do not demonstrate abnormalities that would contraindicate methotrexate and thus it was given in above dose and patient discharged. Departure - Departure Disposition: 01 Home, Self Care Clinical Impression: Ectopic Condition: Good Instructions: ED Preg Ectopic Methotrexate Tx Follow-Up: Ellie Mata MD [Provider Admit Priv/Credential] - Comments: As discussed, you will need further testing by your linemarker in the next few days. Contact your linemarker to discuss recommendations and timing of repeat testing. Discharge Date/Time: 07/28/20 20:51
[2020-07-28 19:44] LABS: BASOPHILS % (AUTO) 0.4 %; EOSINOPHILS # (AUTO) 0.1 10^3/uL (0.0-0.7); EOSINOPHILS % (AUTO) 1.5 %; HGB - HEMOGLOBIN 12.3 g/dL (12.0-16.0); LYMPHOCYTES # (AUTO) 2.4 10^3/uL (1.5-3.5); LYMPHOCYTES % (AUTO) 45.2 %; MEAN CORPUSCULAR HEMOGLOBIN 31.5 pg (27.0-31.0); MEAN CORPUSCULAR HGB CONC 34.3 g/dL (32.0-36.0); MEAN CORPUSCULAR VOLUME 92.1 fL (81.0-99.0); MEAN PLATELET VOLUME 9.9 fL (7.9-10.8); MONOCYTES # (AUTO) 0.5 10^3/uL (0.0-1.0); MONOCYTES % (AUTO) 8.8 %; NEUTROPHILS # (AUTO) 2.3 10^3/uL (1.5-6.6); NEUTROPHILS % (AUTO) 43.9 %; PLT - PLATELET COUNT 297 10^3/uL (130-450); RED CELL DISTRIBUTION WIDTH 12.8 % (12.0-15.0); WHITE BLOOD COUNT 5.2 x10^3/uL (4.8-10.8)
[2020-07-28 19:57] LABS: ALBUMIN/GLOBULIN RATIO 1.1 (1.0-2.2); BILIRUBIN,TOTAL 0.5 mg/dL (0.2-1.0); CALCIUM 9.3 mg/dL (8.5-10.3); CREATININE 0.6 mg/dL (0.4-1.0); TOTAL PROTEIN 7.7 g/dL (6.7-8.2)
[2020-07-28] MEDS ORDERED: METHOTREXATE 50 MG/2 ML MDV IM STA (20:22)
[2020-07-28 20:51] VITALS: BP 99/62
== END 2020-07-28 20:51 | disposition home or self-care (01) ==
LOC: ED 19:08
DX: O00.90 Unspecified ectopic pregnancy without intrauterine pregnancy (principal); Z87.59 Personal history of other complications of pregnancy, childbirth and the puerperium; R93.89 Abnormal findings on diagnostic imaging of other specified body structures
CPT/HCPCS: 36415; 76801; 76817; 80053; 83690; 84702; 85025; 96372; 99283; J9250

== ENCOUNTER 2020-08-01 09:01 | Outpatient (CLI) | payer OTHER | END 2020-08-01 09:02 | disposition home or self-care (01) | LOC: LAB.WCP 09:01 | PROVIDERS: ATTEND Obstetrics & Gynecology | DX: Z87.59 Personal history of other complications of pregnancy, childbirth and the puerperium (principal) | CPT/HCPCS: 36415; 84702 ==

== ENCOUNTER 2020-08-04 15:09 | Outpatient (CLI) | payer OTHER | END 2020-08-04 23:59 | disposition home or self-care (01) | LOC: LAB.WCP 15:09 | PROVIDERS: ATTEND Obstetrics & Gynecology | DX: Z87.59 Personal history of other complications of pregnancy, childbirth and the puerperium (principal) | CPT/HCPCS: 36415; 84702 ==

== ENCOUNTER 2020-08-12 13:35 | Outpatient (CLI) | payer OTHER | END 2020-08-12 23:59 | disposition home or self-care (01) | LOC: LAB.WCP 13:35 | PROVIDERS: ATTEND Obstetrics & Gynecology | DX: Z87.59 Personal history of other complications of pregnancy, childbirth and the puerperium (principal) | CPT/HCPCS: 36415; 84702 ==

== ENCOUNTER 2020-08-20 16:35 | Outpatient (CLI) | payer OTHER | END 2020-08-20 23:59 | disposition home or self-care (01) | LOC: LAB.WCP 16:35 | PROVIDERS: ATTEND Obstetrics & Gynecology | DX: Z87.59 Personal history of other complications of pregnancy, childbirth and the puerperium (principal) | CPT/HCPCS: 36415; 84702 ==

== ENCOUNTER → 2020-08-26 | Outpatient (CLI) | payer OTHER | LOC: LAB.WCP 16:25 | PROVIDERS: ATTEND Obstetrics & Gynecology | DX: Z87.59 Personal history of other complications of pregnancy, childbirth and the puerperium (principal) | CPT/HCPCS: 36415; 84702 ==

== ENCOUNTER 2020-09-03 17:16 | Emergency (ER) | payer OTHER ==
[2020-09-03 19:07] LABS: BILIRUBIN,URINE NEGATIVE (NEGATIVE); GLUCOSE, URINE (UA) NEGATIVE (NEGATIVE); KETONES,URINE (UA) NEGATIVE (NEGATIVE); LEUKOCYTE ESTERASE, URINE NEGATIVE (NEGATIVE); NITRITE,URINE NEGATIVE (NEGATIVE); OCCULT BLOOD,URINE NEGATIVE (NEGATIVE); PH,URINE 7.5 PH (5.0-7.5); PROTEIN,URINE NEGATIVE (NEGATIVE); UROBILINOGEN,URINE 0.2 (NORMAL) E.U./dL (NORMAL)
[2020-09-03 19:09] LABS: CLARITY,URINE CLEAR (CLEAR); HCG UR QUAL NEGATIVE
[2020-09-03 19:22] LABS: BASOPHILS % (AUTO) 0.4 %; EOSINOPHILS # (AUTO) 0.1 10^3/uL (0.0-0.7); EOSINOPHILS % (AUTO) 0.9 %; HGB - HEMOGLOBIN 11.7 g/dL (12.0-16.0); LYMPHOCYTES # (AUTO) 2.4 10^3/uL (1.5-3.5); LYMPHOCYTES % (AUTO) 43.5 %; MEAN CORPUSCULAR HEMOGLOBIN 31.1 pg (27.0-31.0); MEAN CORPUSCULAR HGB CONC 33.3 g/dL (32.0-36.0); MEAN CORPUSCULAR VOLUME 93.4 fL (81.0-99.0); MEAN PLATELET VOLUME 10.5 fL (7.9-10.8); MONOCYTES # (AUTO) 0.4 10^3/uL (0.0-1.0); MONOCYTES % (AUTO) 8.1 %; NEUTROPHILS # (AUTO) 2.6 10^3/uL (1.5-6.6); NEUTROPHILS % (AUTO) 46.9 %; PLT - PLATELET COUNT 267 10^3/uL (130-450); RED BLOOD COUNT 3.76 10^6/uL (4.20-5.40); RED CELL DISTRIBUTION WIDTH 13.2 % (12.0-15.0); WHITE BLOOD COUNT 5.5 x10^3/uL (4.8-10.8)
--- NOTE | 2020-09-03 19:33 | ED Physician Documentation ---
History of Present Illness - Stated complaint Stated Complaint: FALL ON STAIRS/POST OP PX - Chief complaint Chief Complaint: Abd Pain - History obtained from History obtained from: Patient - History of Present Illness Timing: Prior to arrival - Additonal information Additional information: 25-year-old female presents the emergency department for evaluation of right lower quadrant abdominal pain. This is after a fall on some stairs 2 days ago where she slipped landing on her buttock. She does have a bruise on her right gluteus. However since then she has had persistent pain in the right lower quadrant of the abdomen. She is worried because in June she had an ectopic . She was seen by this provider and ultimately had to go to surgery. However tissue remained and she ended up needing to take multiple injections of methotrexate in order to complete the process of the ectopic . Since being seen by OB she has had 1 regular menstrual cycle. She denies possibility of at this time as [place] Review of Systems Constitutional: reports: Reviewed and negative Ears: reports: Reviewed and negative Nose: reports: Reviewed and negative Throat: reports: Reviewed and negative Cardiac: reports: Reviewed and negative Respiratory: reports: Reviewed and negative GI: reports: Abdominal Pain. denies: Nausea, Vomiting : reports: LMP (08/16/20). 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: Ectopic : None Musculoskeletal: None Derm: None - Past Surgical History Past Surgical History: No /BABY REGISTRY SALES CONSULTANT: Other - Allergies Allergies/Adverse Reactions: Allergies Allergy/AdvReac Type Severity Reaction Status Date / Time acetaminophen Allergy Unknown Verified 09/03/20 17:51 peanut Allergy Unknown Verified 09/03/20 17:51 - Social History Does the pt smoke?: No Smoking Status: Never smoker Does the pt have substance abuse?: No PD ED PE NORMAL - General General: Alert and oriented X 3, No acute distress - Neck Neck: Supple, no meningeal sign - Cardiac Cardiac: RRR, No murmur - Respiratory Respiratory: Clear bilaterally - Abdomen Abdomen: Normal bowel sounds, Soft. No: Non tender (Tender in the right lower quadrant without guarding or rebound.) - Back Back: No CVA TTP, No spinal TTP - Derm Derm: Normal color, Warm and dry, Other (Ecchymosis right gluteus) - Extremities Extremities: No deformity - Neuro Neuro: Alert and oriented X 3 Eye Opening: Spontaneous Motor: Obeys Commands Verbal: Oriented GCS Score: 15 Results - Vitals Vitals: Vital Signs - 24 hr 09/03/20 09/03/20 17:42 20:10 Temperature 36.4 C L Heart Rate 65 81 Respiratory 18 18 Rate Blood Pressure 113/72 132/102 H O2 Saturation 100 100 Oxygen O2 Source Room air - Labs Labs: Laboratory Tests 09/03/20 09/03/20 09/03/20 18:25 19:15 19:15 WBC 5.5 RBC 3.76 L Hgb 11.7 L Hct 35.1 L MCV 93.4 MCH 31.1 H MCHC 33.3 RDW 13.2 Plt Count 267 MPV 10.5 Neut # (Auto) 2.6 Lymph # (Auto) 2.4 [place] # (Auto) 0.4 Eos # (Auto) 0.1 Baso # (Auto) 0.0 Absolute Nucleated RBC 0.00 Nucleated RBC % 0.0 Sodium 139 Potassium 3.9 Chloride 101 Carbon Dioxide 26 Anion Gap 12.0 BUN 9 Creatinine 0.6 Estimated GFR (MDRD) 122 Glucose 88 Calcium 9.2 Total Bilirubin 0.5 AST 28 ALT 32 Alkaline Phosphatase 55 Total Protein 7.3 Albumin 4.1 Globulin 3.2 Albumin/Globulin Ratio 1.3 Urine Color YELLOW Urine Clarity CLEAR Urine pH 7.5 Ur Specific [place] 1.010 Urine Protein NEGATIVE Urine Glucose (UA) NEGATIVE Urine Ketones NEGATIVE Urine Occult Blood NEGATIVE Urine Nitrite NEGATIVE Urine Bilirubin NEGATIVE Urine Urobilinogen 0.2 (NORMAL) Ur Leukocyte Esterase NEGATIVE Ur Microscopic Review NOT INDICATED Urine Culture Comments NOT INDICATED Urine HCG, Qual NEGATIVE - Rads (name of study) CT abd Radiology: Final report received (CT of the abdomen and pelvis without acute abnormalities to explain patient's symptoms.) PD MEDICAL DECISION MAKING - ED course Complexity details: reviewed results, re-evaluated patient, considered differential, d/w patient ED course: 25-year-old female presents to the emergency department with acute right lower quadrant pain for 2 days. This is after she fell down a few stairs 2 days ago and has a rather large bruise on her right gluteus and lower back. However she is also concerned as she did have an ectopic about 2 months ago that took time to resolve with complications. Here in the emergency department she has appeared well and was hemodynamically stable. Her labs show a very mild anemia but she has no tachycardia or hypotension. Urine showed no signs of infection. However she was quite tender in the right lower quadrant therefore we did proceed with a CT scan of the abdomen pelvis which showed no acute abnorm ality. These findings were discussed with the patient. She feels improved after Dilaudid for analgesia. I will recommend ibuprofen at home for pain control and she is to continue follow-up with OB as already scheduled. Emergent return precautions to the ER discussed Departure - Departure Disposition: Home, Self Care Clinical Impression: RLQ abdominal pain Fall at home Qualifiers: Encounter type: initial encounter Qualified Code(s): W19.XXXA - Unspecified fall, initial encounter; Y92.009 - Unspecified place in unspecified non- institutional (private) residence as the place of occurrence of the external cause Contusion Qualifiers: Encounter type: initial encounter Contusion area: lower back Qualified Code(s): S30.0XXA - Contusion of lower back and pelvis, initial encounter Condition: Stable Record reviewed to determine appropriate education?: Yes Instructions: ED Abdominal Pain Unkn Cause Comments: Marija your labs today are essentially normal. Your urine shows no signs of infection. You do have a large bruise on your lower back and buttock. It is likely that after falling down the stairs you simply have a bad contusion contributing to your pain. We did do a CT scan of your lower abdomen given the location of your pain and also your history of ectopic . The CT scan did not show any worrisome findings. At this time I would like you to take ibuprofen at home for control of pain. Return to the emergency department if you develop fevers, have suddenly severe or different abdominal pain or you feel that your symptoms fail to improve over the next 7 to 10 days
[2020-09-03 19:35] LABS: ALBUMIN 4.1 g/dL (3.2-5.5); ALBUMIN/GLOBULIN RATIO 1.3 (1.0-2.2); BILIRUBIN,TOTAL 0.5 mg/dL (0.2-1.0); CALCIUM 9.2 mg/dL (8.5-10.3); CREATININE 0.6 mg/dL (0.4-1.0); TOTAL PROTEIN 7.3 g/dL (6.7-8.2)
[2020-09-03] MEDS ORDERED: IOVERSOL 320 100 ML VIAL IVP ONE ×2 (20:00→20:30)
[2020-09-03] MEDS ORDERED: HYDROmorphone 1 MG/ML CARPUJECT IVP STA (20:17)
--- NOTE | 2020-09-03 20:56 | CT Report ---
PROCEDURE: Abdomen/Pelvis W INDICATIONS: RLQ pain/fal; hx of ectopic 06/26/20 right ovary; CONTRAST: IV CONTRAST: Optiray 320 ml: 100 PO CONTRAST: *NO PO CONTRAST TECHNIQUE: After the administration of weight appropriate dose of intravenous contrast, 5 mm thick sections acqu ired from the diaphragms to the symphysis. 5 mm thick coronal and sagittal reformats were acquired. For radiation dose reduction, the following was used: automated exposure control, adjustment of mA and/or kV according to patient size. COMPARISON: None. FINDINGS: Image quality: Excellent. ABDOMEN: Lung bases: Lung bases are clear. Heart size is normal. Solid organs: Liver and spleen are normal in size and enhancement. Gallbladder is mildly contracted . Biliary system is non dilated. Pancreas enhances normally. No adrenal nodules. Kidneys demonstr ate normal size and enhancement, without hydronephrosis. Peritoneum and bowel: Bowel loops demonstrate normal wall thickness and caliber. No free fluid or a ir. Nodes and vessels: No retroperitoneal or mesenteric adenopathy by size criteria. Aorta and inferior vena cava are normal in size. Miscellaneous: No ventral hernias. Small fat-containing umbilical hernia without acute inflammation . PELVIS: Genitourinary: Bladder wall thickness is normal. No pathologic pelvic free fluid visualized. No orga nized fluid collections. Miscellaneous: No inguinal hernias or adenopathy. Bones: No suspicious bony lesions. No vertebral body compression fractures. IMPRESSION: CT abdomen and pelvis without acute abnormalities to explain patient's symptoms. Reviewed by: Melvin Stockton MD on 09/03/2020 8:54 PM PDT Approved by: Melvin Stockton MD on 09/03/2020 8:54 PM PDT Station ID: [id number]
[2020-09-03 21:13] VITALS: BP 103/72
== END 2020-09-03 21:20 | disposition home or self-care (01) ==
LOC: ED 17:16
DX: R10.31 Right lower quadrant pain (principal); S30.0XXA Contusion of lower back and pelvis, initial encounter; W10.9XXA Fall (on) (from) unspecified stairs and steps, initial encounter
CPT/HCPCS: 36415; 74177; 80053; 81003; 81025; 85025; 96374; 99284; J1170; Q9967; 81001; 87086

== ENCOUNTER 2020-11-25 19:32 | Emergency (ER) | payer OTHER ==
--- NOTE | 2020-11-25 19:43 | ED Physician Documentation ---
PD HPI HEADACHE - Stated complaint Stated Complaint: HEADACHE - Chief complaint Chief Complaint: Neuro - History obtained from History obtained from: Patient - History of Present Illness Timing - onset: How many days ago (2) Timing - onset during: Light activity Timing - duration: Days (2) Timing - details: Gradual onset, Still present Worst headache ever?: No: Worst headache ever? (similar to other migraines, just not usually this persistent.) Quality: Throbbing, Aching Associated symptoms: Nausea, Vision changes (some scotomata and has light sensitivity right eye.). No: Fever, Stiff neck, Vomiting, Eye pain Improved by: Rest, Dark room. No: Meds (tried previously Rx med for her headache, not sure of name, but was twice daily regularly to reduce them and then down to BID as needed when having less, and she says it would upset her stomach. Sounds likely indomethacin.) Worsened by: Light, Noise Contributing factors: No: Recent illness, Trauma Similar symptoms before: Diagnosis (migraine headaches for several years, had not had one recently) Recently seen: Not recently seen Review of Systems Constitutional: denies: Fever, Chills Eyes: reports: Photophobia. denies: Loss of vision, Decreased vision Nose: denies: Rhinorrhea / runny nose, Congestion, Sinus pressure / pain Throat: denies: Sore throat Respiratory: denies: Cough GI: reports: Nausea. denies: Vomiting, Diarrhea Neurologic: reports: Headache. 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 : None Musculoskeletal: None Derm: None - Past Surgical History Past Surgical History: No /STRUCTURAL STEEL SHOP SUPERVISOR: Other - Present Medications Home Medications: Ambulatory Orders Medication Instructions Recorded Confirmed Ibuprofen [Motrin] 600 mg PO TID PRN #15 tab 11/25/20 Ondansetron Odt [Zofran] 4 mg TL Q6H PRN #10 tablet 11/25/20 Rizatriptan Benzoate [Maxalt] 10 mg PO Q4H PRN #6 tablet 11/25/20 oxyCODONE [Roxicodone] 5 mg PO Q4-6H PRN #10 tablet 11/25/20 - Allergies Allergies/Adverse Reactions: Allergies Allergy/AdvReac Type Severity Reaction Status Date / Time acetaminophen Allergy Unknown Verified 11/25/20 19:37 peanut Allergy Unknown Verified 11/25/20 19:37 - Social History Does the pt smoke?: No Smoking Status: Never smoker Does the pt have substance abuse?: No PD ED PE NORMAL - Vitals Vital signs reviewed: Yes - General General: Alert and oriented X 3, No acute distress (does have light sensitivity right side particularly.), Well developed/nourished - HEENT HEENT: PERRL, EOMI, Ears normal, Pharynx benign - Neck Neck: Supple, no meningeal sign, No adenopathy - Cardiac Cardiac: RRR, No murmur - Respiratory Respiratory: Clear bilaterally - Derm Derm: Normal color, Warm and dry - Neuro Neuro: Alert and oriented X 3, cutter operator brick 2-12 intact, No motor deficit, No sensory deficit, Normal speech, Other Eye Opening: Spontaneous Motor: Obeys Commands Verbal: Oriented GCS Score: 15 Results - Vitals Vitals: Vital Signs - 24 hr 11/25/20 11/25/20 19:35 22:01 Temperature 36.3 C L Heart Rate 63 74 Respiratory 16 14 Rate Blood Pressure 120/71 122/74 O2 Saturation 99 99 Oxygen O2 Source Room air PD MEDICAL DECISION MAKING - ED course Complexity details: re-evaluated patient (no change really with subcut Imitrex and toradol. May be due to being 2 1/2 days into the headache. She is driving so not able to take opioid here. Allergy to acetaminophen limits other choices ([place], Fioricet). Gave Decadron and will try DHE. ), considered differential (seems like migraine without red flags to suggest need for testing. ), d/w patient ED course: The DHE did help more with the headache. Departure - Departure Disposition: 01 Home, Self Care Clinical Impression: Migraine headache Qualifiers: Migraine type: without aura Status migrainosus presence: with status migrain osus Intractability: not intractable Qualified Code(s): G43.001 - Migraine without aura, not intractable, with status migrainosus Condition: Stable Record reviewed to determine appropriate education?: Yes Instructions: ED Headache Migraine Follow-Up: LEORA DUVAL ARNP [Primary Care Provider] - Prescriptions: Rizatriptan Benzoate [Maxalt] 10 mg PO Q4H PRN #6 tablet PRN Reason: Migraine Ibuprofen [Motrin] 600 mg PO TID PRN #15 tab PRN Reason: Pain oxyCODONE [Roxicodone] 5 mg PO Q4-6H PRN #10 tablet PRN Reason: Pain Ondansetron Odt [Zofran] 4 mg TL Q6H PRN #10 tablet PRN Reason: Nausea / Vomiting Comments: Stay well-hydrated. Use ondansetron if needed for nausea. Oxycodone if needed for persistent pain tomorrow. For subsequent migraines, you can try combination of rizatriptan along with ondansetron and ibuprofen (this is a different medicine then we tried here). See if that will take care of the headache earlier in the course. Recheck if the current headache is not improved well it within the next day or so. Discharge Date/Time: 11/25/20 22:02
[2020-11-25] MEDS ORDERED: KETOROLAC 30 MG/ML VIAL IM STA (20:04)
[2020-11-25] MEDS ORDERED: ONDANSETRON ODT 4 MG TABLET TL STA (20:04)
[2020-11-25] MEDS ORDERED: SUMAtriptan 6 MG/0.5 ML VIAL SUBQ STA (20:05)
[2020-11-25] MEDS ORDERED: oxyCODONE 5 MG TABLET PO STA (21:13)
[2020-11-25] MEDS ORDERED: CHERRY SYRUP 10 ML UDC PO ONE (21:13)
[2020-11-25] MEDS ORDERED: DEXAMETHASONE 10 MG/ML VIAL PO STA (21:13)
[2020-11-25] MEDS ORDERED: DIHYDROERGOTAMINE 1 MG/ML AMP SUBQ ONE (21:33)
[2020-11-25 22:02] VITALS: BP 122/74
== END 2020-11-25 22:02 | disposition home or self-care (01) ==
LOC: ED 19:32
DX: G43.001 Migraine without aura, not intractable, with status migrainosus (principal)
CPT/HCPCS: 96372; 99283; 99284; A9270; J1110; Q0162

== ENCOUNTER 2021-05-15 22:22 | Emergency (ER) | payer OTHER ==
[2021-05-15 22:30] VITALS: BP 109/72
[2021-05-15] MEDS ORDERED: DEXAMETHASONE 10 MG/ML VIAL PO STA (22:38)
[2021-05-15] MEDS ORDERED: CHERRY SYRUP 10 ML UDC PO ONE (22:38)
[2021-05-15] MEDS ORDERED: DOXEPIN 10 MG CAPSULE PO STA (22:38)
--- NOTE | 2021-05-15 22:39 | ED Physician Documentation ---
PD HPI WOUND RECHECK - Stated complaint Stated Complaint: LT LEG REDNESS/PX - Chief complaint Chief Complaint: Wound - Histroy obtained from History obtained from: Patient (Stung by mosquito and now is a significant reaction on the left leg. No throat swelling, fevers, airway complaints, GI complaints. 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: Ectopic : None Musculoskeletal: None Derm: None - Past Surgical History Past Surgical History: No /OPERATIONS INTELLIGENCE SUPERINTENDENT: Other - Present Medications Home Medications: Ambulatory Orders Medication Instructions Recorded Confirmed Ibuprofen [Motrin] 600 mg PO TID PRN #15 tab 11/25/20 Ondansetron Odt [Zofran] 4 mg TL Q6H PRN #10 tablet 11/25/20 Rizatriptan Benzoate [Maxalt] 10 mg PO Q4H PRN #6 tablet 11/25/20 oxyCODONE [Roxicodone] 5 mg PO Q4-6H PRN #10 tablet 11/25/20 Doxepin [SINEquan] 10 mg PO TID PRN #20 cap 05/15/21 predniSONE [Deltasone] 60 mg PO DAILY 5 Days #15 tablet 05/15/21 - Allergies Allergies/Adverse Reactions: Allergies Allergy/AdvReac Type Severity Reaction Status Date / Time acetaminophen Allergy Unknown Verified 05/15/21 22:30 peanut Allergy Unknown Verified 05/15/21 22:30 - Social History Does the pt smoke?: No Smoking Status: Never smoker Does the pt drink ETOH?: Yes Does the pt have substance abuse?: No - Immunizations Immunizations are current?: Yes - POLST Patient has POLST: No PD ED PE NORMAL - Vitals Vital signs reviewed: Yes - General General: Alert and oriented X 3, No acute distress - Extremities Extremities: Other (There is quite inflamed mosquito bite measuring almost 8 cm around on the left distal medial thigh) - Neuro Neuro: Alert and oriented X 3, Normal speech Results - Vitals Vitals: Vital Signs - 24 hr 05/15/21 22:28 Temperature 36.8 C Heart Rate 71 Respiratory 16 Rate Blood Pressure 109/72 O2 Saturation 100 Oxygen O2 Source Room air Departure - Departure Disposition: 01 Home, Self Care Clinical Impression: Mosquito bite Qualifiers: Encounter type: initial encounter Qualified Code(s): W57.XXXA - Bitten or stung by nonvenomous insect and other nonvenomous arthropods, initial encounter Condition: Good Record reviewed to determine appropriate education?: Yes Instructions: ED Bite Mosquito Prescriptions: predniSONE [Deltasone] 60 mg PO DAILY 5 Days #15 tablet Doxepin [SINEquan] 10 mg PO TID PRN #20 cap PRN Reason: Itching Comments: Call your doctor to arrange a follow-up appointment, make the next available appointment. In the interim, return anytime if worse or if new symptoms develop.
== END 2021-05-15 22:52 | disposition home or self-care (01) ==
LOC: ED 22:22
DX: S80.862A Insect bite (nonvenomous), left lower leg, initial encounter (principal); W57.XXXA Bitten or stung by nonvenomous insect and other nonvenomous arthropods, initial encounter
CPT/HCPCS: 99282; 99283; A9270

== ENCOUNTER 2021-06-09 23:03 | Emergency (ER) | payer OTHER ==
[2021-06-09 23:14] VITALS: BP 112/70
[2021-06-09] MEDS ORDERED: IBUPROFEN 600 MG TABLET PO STA (23:17)
--- NOTE | 2021-06-09 23:34 | ED Physician Documentation ---
History of Present Illness - Stated complaint Stated Complaint: SOA/COUGH/HEADACHE - Chief complaint Chief Complaint: Resp - History obtained from History obtained from: Patient - Additonal information Additional information: 26-year-old woman, unvaccinated against COVID-19 presents with shortness of breath, cough, headache and intermittent chest pain this morning. [place] denies hemoptysis, leg swelling, bedrest. 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 Musculoskeletal: None Derm: None - Past Surgical History Past Surgical History: No /CYBER SECURITY ADMINISTRATOR: Other - Present Medications Home Medications: Ambulatory Orders Medication Instructions Recorded Confirmed Ibuprofen [Motrin] 600 mg PO TID PRN #15 tab 11/25/20 Ondansetron Odt [Zofran] 4 mg TL Q6H PRN #10 tablet 11/25/20 Rizatriptan Benzoate [Maxalt] 10 mg PO Q4H PRN #6 tablet 11/25/20 oxyCODONE [Roxicodone] 5 mg PO Q4-6H PRN #10 tablet 11/25/20 Doxepin [SINEquan] 10 mg PO TID PRN #20 cap 05/15/21 predniSONE [Deltasone] 60 mg PO DAILY 5 Days #15 tablet 05/15/21 - Allergies Allergies/Adverse Reactions: Allergies Allergy/AdvReac Type Severity Reaction Status Date / Time acetaminophen Allergy Unknown Verified 06/09/21 23:14 peanut Allergy Unknown Verified 06/09/21 23:14 - Social History Does the pt smoke?: No Smoking Status: Never smoker Does the pt drink ETOH?: Yes Does the pt have substance abuse?: No - Immunizations Immunizations are current?: Yes - POLST Patient has POLST: No PD ED PE NORMAL - Vitals Vital signs reviewed: Yes - General General: Alert and oriented X 3, No acute distress, Well developed/nourished - HEENT HEENT: Atraumatic, PERRL, EOMI - Neck Neck: Supple, no meningeal sign - Cardiac Cardiac: RRR - Respiratory Respiratory: No respiratory distress, Clear bilaterally - Abdomen Abdomen: Non tender, Non distended - Derm Derm: Normal color, Warm and dry - Extremities Extremities: No deformity - Neuro Neuro: Alert and oriented X 3 - Psych Psych: Normal mood, Normal affect Results - Vitals Vitals: Vital Signs - 24 hr 06/09/21 23:08 Temperature 36.9 C Heart Rate 70 Respiratory 16 Rate Blood Pressure 112/70 O2 Saturation 99 Oxygen O2 Source Room air - Labs Labs: Laboratory Tests 06/09/21 23:20 Nasal Adenovirus (PCR) NOT DETECTED Nasal B. parapertussis DNA (PCR) NOT DETECTED Nasal Coronavir 229E PCR NOT DETECTED Nasal Coronavir HKU1 PCR NOT DETECTED Nasal Coronavir NL63 PCR NOT DETECTED Nasal Coronavir OC43 PCR NOT DETECTED Nasal Enterovir/Rhinovir PCR NOT DETECTED Nasal Influenza B PCR NOT DETECTED Nasal Influenza A PCR NOT DETECTED Nasal Parainfluen 1 PCR NOT DETECTED Nasal Parainfluen 2 PCR NOT DETECTED Nasal Parainfluen 3 PCR NOT DETECTED Nasal Parainfluen 4 PCR NOT DETECTED Nasal RSV (PCR) NOT DETECTED Nasal B.pertussis DNA PCR NOT DETECTED Nasal C.pneumoniae (PCR) NOT DETECTED Todd Human Metapneumo PCR NOT DETECTED Nasal M.pneumoniae (PCR) NOT DETECTED Nasal SARS-CoV-2 (PCR) NOT DETECTED PD MEDICAL DECISION MAKING - ED course ED course: 26-year-old woman presents with cough, shortness of breath, chest tightness this morning after Covid exposure. Covid test negative. I advised her to stay home until symptoms improve since this could be a false negative. She should probably get retested. Will have her follow-up with [facility]. Return precautions given. Education given about symptom management. Departure - Departure Disposition: 01 Home, Self Care Clinical Impression: Viral upper respiratory infection Condition: Good Instructions: ED Viral Syndrome Comments: You are seen in the emergency department for a viral upper respiratory infection. Your respiratory viral panel did not show any viruses including Covid. It is possible that this is a false negative so you should stay home and get lots of rest until your symptoms improve. Consider getting a repeat test in 1 week if you do not have improvement. Follow-up with [facility]. Return to the emergency department if you have any new or worsening symptoms or other concerns. Forms: Activity restrictions
[2021-06-10 00:18] LABS: B. PARAPERTUSSIS- RESP PCR PAN NOT DETECTED; B. PERTUSSIS- RESP PCR PANEL NOT DETECTED; C. PNEUMONIAE- RESP PCR PANEL NOT DETECTED; CORONAVIRUS 229E-RESP PCR NOT DETECTED; CORONAVIRUS HKU1-RESP PCR NOT DETECTED; CORONAVIRUS NL63-RESP PCR NOT DETECTED; CORONAVIRUS OC43-RESP PCR NOT DETECTED; HUMAN METAPNEUMOVIRUS NOT DETECTED; INFLUENZA A- RESP PCR PANEL NOT DETECTED; INFLUENZA B - RESP PCR PANEL NOT DETECTED; M. PNEUMONIAE- RESP PCR PANEL NOT DETECTED; PARAINFLUENZA VIRUS 1 NOT DETECTED; PARAINFLUENZA VIRUS 2 NOT DETECTED; PARAINFLUENZA VIRUS 3 NOT DETECTED; PARAINFLUENZA VIRUS 4 NOT DETECTED; RHINOVIRUS/ENTEROVIRUS NOT DETECTED; RSV- RESP PCR PANEL NOT DETECTED; SARS-CoV-2 -RESP PCR PANEL NOT DETECTED
--- NOTE | 2021-06-10 08:11 | XRAY Report ---
PROCEDURE: Chest 1 View X-Ray INDICATIONS: soa, cough, CP, covid exposure TECHNIQUE: One view of the chest was acquired. COMPARISON: None FINDINGS: Surgical changes and devices: None. Lungs and pleura: No pleural effusions or pneumothorax. Lungs are clear. Mediastinum: Mediastinal contours appear normal. Heart size is normal. Bones and chest wall: No suspicious bony lesions. Overlying soft tissues appear unremarkable. IMPRESSION: No acute disease. Findings concordant with the preliminary study interpretation. Reviewed by: Guille Garcia MD on 06/10/2021 8:09 AM PDT Approved by: Guille Garcia MD on 06/10/2021 8:09 AM PDT Station ID: [id number]
== END 2021-06-10 00:46 | disposition home or self-care (01) ==
LOC: ED 23:03
DX: J06.9 Acute upper respiratory infection, unspecified (principal); Z20.822 Contact with and (suspected) exposure to COVID-19
CPT/HCPCS: 0202U; 71045; 99282; 99284; A9270

== ENCOUNTER 2021-07-24 21:57 | Emergency (ER) | payer OTHER ==
--- NOTE | 2021-07-24 22:44 | ED Physician Documentation ---
History of Present Illness - Stated complaint Stated Complaint: NEW MED/REACTION - Chief complaint Chief Complaint: Allergic Rx - History obtained from History obtained from: Patient - History of Present Illness Timing: How many minutes ago (30) - Additonal information Additional information: patient says she has been having generalized headache x 2 days c/w previous migraine headaches. She says she was seen by PMD and prescribed metoprolol, which is a new prescription for her. She took the first dose tonight and within 30 minutes developed generalized pruritis , sensation of tongue swelling. she has not had this medication before. She feels her migraine is worse after taking the metoprolol Review of Systems Throat: reports: Other (sensation of tongue swelling) Cardiac: reports: Reviewed and negative Respiratory: reports: Reviewed and negative GI: reports: Reviewed and negative : denies: Now EGA Skin: denies: Rash Neurologic: reports: Headache. 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 Musculoskeletal: None Derm: None - Past Surgical History Past Surgical History: Yes /PHYSICAL THERAPY TECHNICIAN: Other - Present Medications Home Medications: Ambulatory Orders Medication Instructions Recorded Confirmed Doxepin [SINEquan] 10 mg PO TID PRN #20 cap 05/15/21 07/24/21 Propranolol [Inderal] 10 mg PO 07/24/21 - Allergies Allergies/Adverse Reactions: Allergies Allergy/AdvReac Type Severity Reaction Status Date / Time acetaminophen Allergy Unknown Verified 06/09/21 23:14 peanut Allergy Unknown Verified 06/09/21 23:14 propranolol Allergy Itching Verified 07/24/21 22:05 - Social History Does the pt smoke?: No Smoking Status: Never smoker Does the pt drink ETOH?: Yes Does the pt have substance abuse?: No - Immunizations Immunizations are current?: Yes - POLST Patient has POLST: No PD ED PE NORMAL - Vitals Vital signs reviewed: Yes - General General: Alert and oriented X 3, No acute distress, Well developed/nourished - HEENT HEENT: Moist mucous membranes, Other (no obvious perioral nor intraoral swelling including tongue. airway is widely patent) - Cardiac Cardiac: RRR, No murmur - Respiratory Respiratory: No respiratory distress, Clear bilaterally - Derm Derm: No rash Results - Vitals Vitals: Oxygen O2 Source Room air PD MEDICAL DECISION MAKING - ED course Complexity details: re-evaluated patient, considered differential, d/w patient ED course: possible allergic reaction to new medication (metoprolol) with subjective c/o (pruritis but no rash, sensation of tongue swelling but no obvious edema/swelling on my exam). Given IM toradol, IM phenergan, and IM benadryl for migraine (with benadryl also for possible allergic reaction), as well as po decadron (also could have beneficial effect on both migraine and possible allergic reaction). Departure - Departure Disposition: Home, Self Care Clinical Impression: Allergic reaction Condition: Good Instructions: ED Drug React Allergic Follow-Up: NEELA STEPHENS MD [Primary Care Provider] - Comments: You can take benadryl 25mg-50mg by mouth every 6 hours as needed for either allergic reaction symptoms (such as itching or swelling) or if you experience ongoing jitteriness; as we discussed, I suspect the jitteriness is due to the antinausea medication we gave you. This side effect typically lasts 4-6 hours. You should probably avoid this medication (phenergan) in the future. Discharge Date/Time: 07/25/21 00:43
[2021-07-24] MEDS ORDERED: KETOROLAC 60 MG/2 ML VIAL IM STA (22:55)
[2021-07-24] MEDS ORDERED: DEXAMETHASONE 10 MG/ML VIAL PO STA (22:56)
[2021-07-24] MEDS ORDERED: diphenhydrAMINE INJ 50 MG/ML VIAL IM STA (22:56)
[2021-07-24] MEDS ORDERED: PROMETHAZINE 25 MG/1 ML VIAL IM STA (22:56)
[2021-07-24] MEDS ORDERED: CHERRY SYRUP 10 ML UDC PO ONE (22:56)
[2021-07-25 00:06] VITALS: BP 107/88
[2021-07-25] MEDS ORDERED: diphenhydrAMINE 25 MG CAPSULE PO STA (00:28)
== END 2021-07-25 00:43 | disposition home or self-care (01) ==
LOC: ED 21:57
DX: T78.40XA Allergy, unspecified, initial encounter (principal)
CPT/HCPCS: 96372; 99283; 99284; A9270; J1200